=== PATIENT | female | born 2000 | race Two or more races ===

== ENCOUNTER 2024-02-17 18:17 | Emergency (ER) | payer OTHER ==
[~2024-02-17] VITALS: Ht 165.1 cm; Wt 127.9 kg
[2024-02-17 18:30] VITALS: BP 122/82; RESP 17; O2SAT 98
[2024-02-17 23:00] VITALS: PULSE 92
== END 2024-02-18 00:44 | disposition left against medical advice (07) ==
LOC: ER 18:17 → OVERFLOW 22:16 → UNDOADMIN 22:16 → ER 02-18 00:44
DX: S93.401A Sprain of unspecified ligament of right ankle, initial encounter (principal); Z68.42 Body mass index [BMI] 45.0-49.9, adult; X58.XXXA Exposure to other specified factors, initial encounter; Y93.89 Activity, other specified; Y92.89 Other specified places as the place of occurrence of the external cause; Y99.8 Other external cause status
CPT/HCPCS: 73610; G0378

== ENCOUNTER 2024-03-13 03:00 | Emergency (ER) | payer OTHER ==
[~2024-03-13] VITALS: Ht 165.1 cm; Wt 127.7 kg
[2024-03-13 04:08] VITALS: BP 127/67; PULSE 111; RESP 16; TEMP 98; O2SAT 99
[2024-03-13] MEDS ORDERED: IBUP-1456 PO (04:09)
[2024-03-13] MEDS: HYDROcodone-ACET 5/325MG TAB PO ONE (04:17)
== END 2024-03-13 05:16 | disposition home or self-care (01) ==
LOC: ER 03:00
DX: S82.832A Other fracture of upper and lower end of left fibula, initial encounter for closed fracture (principal); Z79.1 Long term (current) use of non-steroidal anti-inflammatories (NSAID); W17.89XA Other fall from one level to another, initial encounter; Y93.89 Activity, other specified; Y92.89 Other specified places as the place of occurrence of the external cause; Y99.8 Other external cause status
CPT/HCPCS: 29515; 73610

== ENCOUNTER 2024-03-23 08:21 | Day surgery (SDC) | payer OTHER ==
[~2024-03-23] VITALS: Ht 165.1 cm; Wt 129.3 kg
[~2024-03-23 08:21] MED LIST: DROS4TAB PO; IBUP-1456 PO
[2024-03-23] MEDS ORDERED: ceFAZolin 2 GM/D5W100ml 100 ML IV ONE (09:13)
[2024-03-23] MEDS ORDERED: ROPIVACAINE 0.5% (5MG/ML) 20ML AMPULE IJ ONE (09:42)
[2024-03-23] MEDS ORDERED: NALOXONE HCL 0.4 MG/ML VIAL IV PRN (09:45)
[2024-03-23] MEDS ORDERED: MORPHINE SULFATE 4 MG/ML SYR/VIAL IV PRN (09:45)
[2024-03-23] MEDS ORDERED: ROCURONIUM 10MG/ML 10ML VIAL IV ONE (09:46)
[2024-03-23] MEDS ORDERED: KETOROLAC TROMETH 30 MG/ML 1ML VIAL ONE (11:02)
[2024-03-23] MEDS ORDERED: ONDANSETRON HCL 4 MG/2 ML VIAL ONE ×2 (11:02→13:47)
[2024-03-23] MEDS ORDERED: DexAMETHasone SOD PHOS 10MG/1ML VIAL INJ ONE (11:02)
[2024-03-23] MEDS ORDERED: SUGAMMADEX 200mg/2ml Vial (100MG/ML) IV ONE (11:05)
[2024-03-23] MEDS ORDERED: HYDROmorphone HCL 2 MG/ML VL/or syr ONE (11:07)
--- NOTE | 2024-03-23 11:10 | DVHOP2 ---
Operative Report - 2 Report Details Date: 03/23/24 Preop Diagnosis: Left ankle distal fibular fracture with syndesmosis rupture Postop Diagnosis: Same Surgeon: Singh Wang MD Group Exercise Class Instructor: Pam MOODY Anesthesiologist: Wayne Anesthesia: General Implant: Fusion eight hole 1/3 tubular plate with six screws, Arthrex tight rope Consent: The patient was informed of the risks and benefits of the procedure. These include but are not limited to complications of anesthesia, postoperative infection, incomplete relief of symptoms, recurrence of symptoms, damage to blood vessels, nerves and tendons, deep venous thrombosis, pulmonary embolism and possible need for repeat surgery in the future. Complications: None Estimated Blood Loss: 10 cc Fluids: See anesthesia record Findings: Comminuted distal fibular fracture with evidence of syndesmosis instability based on physical exam and C-arm fluoroscopy Indications for Surgery: Unstable left ankle fracture with ligament tear Name of Procedure Performed Left ankle open reduction internal fixation distal fibula with syndesmosis reduction and fixation C-arm fluoroscopy Procedure Details Procedure Details: Patient was brought to the operating room and placed on the table in the supine position. Preop patient received IV Ancef. Patient was given general anesthetic. Left lower extremity had tourniquet applied to the thigh. Left lower extremity was prepped and draped in sterile fashion. Surgical time-out was performed verifying patient, laterality, and procedure. Left lower extremity was elevated, exsanguinated with Esmarch and tourniquet inflated to 250 mm Hg. I 1st performed clinical examination with C-arm applying abduction stress noting syndesmosis instability and increased medial clear space. I then used C-arm to guide placement of an incision over the distal fibula. I used the Bovie to dissect down to the bone. Bovie was also used for hemostasis. I elevated soft tissue off the comminuted fracture. I reduced the fracture and held it with tenaculum then pinned it with a 0.062 K-wire. I brought up an eight hole plate and fixed it proximally with a three five screw and distally with a three five screw. Screw technique involved drilling with a 2.8 drill bit followed by application of depth gauge and insertion of screw. C-arm confirmed hardware placement and reduction. I placed two additional screws proximally and two additional screws distally. The K-wire was removed and again x-rays obtained to verify hardware placement and reduction. I then used the Arthrex drill to drill distal to the plate across the fibula and tibia. I then reduced the syndesmosis and held it with tenaculum making a stab wound medially for the reduction forceps. I then passed the tight rope flipped it and pulled back to seat it and then reduced the tight rope button. I did some gentle stress confirming stability. Multiple x-rays were obtained with C-arm and saved. I cut the sutures. The wound was then irrigated normal saline. SubQ closed with 2-0 Vicryl. Skin closed with subcuticular 3-0 Monocryl. Followed by application of sterile dressing, tourniquet released. Bulky cotton dressing wi th splint applied. Patient tolerated the procedure well was brought to recovery room in stable condition. Condition Stable Disposition Still a Patient SINGH WANG MD Mar 23, 2024 11:10
[2024-03-23 11:22] VITALS: TEMP 98
[2024-03-23] MEDS: HYDROmorphone HCL 2 MG/ML VL/or syr IV PRN (11:35)
[2024-03-23] MEDS ORDERED: LIDOCAINE HCL 100 MG/5ML (2%) SYRG INJ IV ONE (12:45)
[2024-03-23] MEDS: ONDANSETRON HCL 4 MG/2 ML VIAL IV ONE (13:00)
[2024-03-23 13:05] VITALS: BP 121/65; PULSE 96; RESP 16; O2SAT 97
--- NOTE | 2024-03-23 13:51 | DVH ---
C-ARM FLUOROSCOPY: PROCEDURE: left ankle orif FLUOROSCOPY TIME: 44.7 sec
--- NOTE | 2024-03-23 13:51 | DVH ---
C-ARM FLUOROSCOPY: PROCEDURE: left ankle orif FLUOROSCOPY TIME: 44.7 sec
== END 2024-03-23 13:10 | disposition home or self-care (01) ==
LOC: SUR 08:21
PROVIDERS: ATTEND Orthopaedic Surgery
DX: S82.832A Other fracture of upper and lower end of left fibula, initial encounter for closed fracture (principal); S93.432A Sprain of tibiofibular ligament of left ankle, initial encounter; E66.9 Obesity, unspecified; X58.XXXA Exposure to other specified factors, initial encounter; Y93.89 Activity, other specified; Y92.89 Other specified places as the place of occurrence of the external cause; Y99.8 Other external cause status
CPT/HCPCS: 27792; 27829; 73600; C1713; J1100; J1171; J1885; J2405; J2795; 76000